=== PATIENT | female | born 1960 | race Caucasian/White ===

== ENCOUNTER 2017-10-14 19:11 | Emergency (ER) | payer OTHER ==
--- NOTE | 2017-10-14 20:36 | ER Document Report ---
ED Medical Screen (RME) - General Chief Complaint: Leg Pain Stated Complaint: RIGHT LEG PAIN/SWELLING Time Seen by Provider: 10/14/17 20:35 Notes: Patient has a spontaneous nontraumatic onset of right leg pain swelling and bruising. No previous history of DVTs. TRAVEL OUTSIDE OF THE [place] IN LAST 30 DAYS: No - Related Data Allergies/Adverse Reactions: No Known Allergies Allergy (Unverified 10/14/17 20:22) Past Medical History - Social History Chew tobacco use (# tins/day): No Frequency of alcohol use: Occasional Drug Abuse: Marijuana Renal/ Medical History: Denies: Hx Peritoneal Dialysis Musculoskeltal Medical History: Reports Hx Arthritis Physical Exam - Vital signs Vitals: Temp Pulse Resp BP Pulse Ox 98.1 F 78 20 149/94 H 99 10/14/17 19:28 10/14/17 19:28 10/14/17 19:28 10/14/17 19:28 10/14/17 19:28 Course - Vital Signs Vital signs: Temp Pulse Resp BP Pulse Ox 98.1 F 78 20 149/94 H 99 10/14/17 19:28 10/14/17 19:28 10/14/17 19:28 10/14/17 19:28 10/14/17 19:28
[2017-10-14 20:55] LABS: ABSOLUTE BASOPHILS # (AUTO) 0.1 10^3/uL (0.0-0.2); ABSOLUTE EOSINOPHILS # (AUTO) 0.3 10^3/uL (0.0-0.6); ABSOLUTE LYMPHOCYTES (AUTO) 2.1 10^3/uL (0.5-4.7); ABSOLUTE MONOCYTES (AUTO) 0.8 10^3/uL (0.1-1.4); ABSOLUTE NEUT (AUTO) 3.9 10^3/uL (1.7-8.2); BASOPHILS % (AUTO) 0.9 % (0-2); EOSINOPHILS % (AUTO) 4.6 % (0-6); HEMATOCRIT 36.9 % (36.0-47.0); HEMOGLOBIN 12.3 g/dL (12.0-15.5); MEAN CORPUSCULAR HEMOGLOBIN 30.1 pg (27.0-33.4); MEAN CORPUSCULAR HGB CONC 33.4 g/dL (32.0-36.0); MEAN CORPUSCULAR VOLUME 90 fl (80-97); PLATELET COUNT 327 10^3/uL (150-450); RED CELL DISTRIBUTION WIDTH 14.9 % (11.5-14.0); SEGMENTED NEUTROPHILS % (AUTO) 54.5 % (42-78); TOTAL CELLS COUNTED % (AUTO) 100 %; WHITE BLOOD COUNT 7.2 10^3/uL (4.0-10.5)
[2017-10-14 21:08] LABS: ANION GAP 9 (5-19); BLOOD UREA NITROGEN 17 mg/dL (7-20); CALCIUM 10.3 mg/dL (8.4-10.2); CARBON DIOXIDE 28 mmol/L (22-30); CHLORIDE 105 mmol/L (98-107); GLUCOSE 83 mg/dL (75-110); POTASSIUM 4.1 mmol/L (3.6-5.0); SODIUM 142.2 mmol/L (137-145)
--- NOTE | 2017-10-14 22:23 | ER Document Report ---
ED General - General Chief Complaint: Leg Pain Stated Complaint: RIGHT LEG PAIN/SWELLING Time Seen by Provider: 10/14/17 20:35 TRAVEL OUTSIDE OF THE [place] IN LAST 30 DAYS: No - HPI Notes: Patient is a 56-year-old female with no significant past medical history who presents to the ED complaining of right lower leg swelling, bruising, and pain 1-1/2 weeks without known injury or precipitating event. Patient states that she believes the swelling did improve over the weekend because she was not using as much, but over the last couple days the swelling has increased in the pain has increased as well. Patient states that most of her pain is to the posterior calf and posterior knee. Patient states that ambulating makes the pain worse. 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 She denies any prolonged immobilization, distance travel, smoking, hormone replacement, previous DVT/PE, recent surgery/trauma. Denies any drug allergies. No other concerns or complaints at this time. Patient states that she is eating and drinking without difficulties. She is urinating normally and having normal bowel movements. Denies any headache, fever, URI, sore throat, chest pain, palpitations, syncope, cough, shortness of breath, wheeze, dyspnea, abdominal pain, nausea/vomiting/diarrhea, urinary retention, dysuria, hematuria , back pain, loss of control of bowel or bladder, numbness/tingling, saddle anesthesia, muscle paralysis/weakness, or rash. - Related Data Allergies/Adverse Reactions: No Known Allergies Allergy (Unverified 10/14/17 20:22) Past Medical History - Social History Smoking Status: Former Smoker Chew tobacco use (# tins/day): No Frequency of alcohol use: Occasional Drug Abuse: Marijuana Family History: Reviewed & Not Pertinent Patient has suicidal ideation: No Patient has homicidal ideation: No Renal/ Medical History: Denies: Hx Peritoneal Dialysis Musculoskeltal Medical History: Reports Hx Arthritis Review of Systems - Review of Systems -: Yes All other systems reviewed and negative Physical Exam - Vital signs Vitals: Temp Pulse Resp BP Pulse Ox 98.1 F 78 20 149/94 H 99 10/14/17 19:28 10/14/17 19:28 10/14/17 19:28 10/14/17 19:28 10/14/17 19:28 - Notes Notes: PHYSICAL EXAMINATION: GENERAL: Well-appearing, well-nourished and in no acute distress. LUNGS: Breath sounds clear to auscultation bilaterally and equal. No wheezes rales or rhonchi. HEART: Regular rate and rhythm without murmurs, rubs, gallops. ABDOMEN: Soft, nontender, nondistended abdomen. No guarding, no rebound. No masses appreciated. Normal bowel sounds present. No CVA tenderness bilaterally. No obvious inguinal adenopathy. Musculoskeletal: Rt LE: FROM to passive/active. Strength 5+/5. N/v intact distal. + leander right side. + unilateral swelling and ecchymosis to the rt LE. Extremities: 1+ pitting edema to the rt LE. No edema LLE. Peripheral pulses 2 +. Capillary refill less than 3 seconds. NEUROLOGICAL: Cranial nerves grossly intact. Normal speech, normal gait. Normal sensory, motor exams PSYCH: Normal mood, normal affect. SKIN: Warm, Dry, normal turgor, no rashes or lesions noted. Course - Re-evaluation Re-evalutation: 10/14/17 23:[address] Monteiro. Patient is an afebrile, well-hydrated, 56-year-old female who presents to the ED with unilateral leg swelling and pain, suspicion for DVT. Vitals are acceptable. PE is otherwise unremarkable for any neurovascular compromise, obvious tendon/ligament rupture, obvious fracture/dislocation, septic joint. Unfortunately, we do not have any ultrasound here this evening and we missed the cutoff for notification to be able to have them come in. The soonest that she can have an ultrasound performed is tomorrow. In lieu of this, Lovenox 70 mg given today due to clinical suspicion with risk and benefit fully understood that includes bleeding and infection risk. Reviewed plan with patient and she is in agreement to return in the morning for further evaluation and management as well as ultrasound. She has been instructed to return to the emergency department. Patient to return to the emergency department with any other worsening/concerning symptoms otherwise as reviewed discharge. - Vital Signs Vital signs: Temp Pulse Resp BP Pulse Ox 97.4 F 73 16 139/89 H 99 10/14/17 22:55 10/14/17 22:55 10/14/17 22:55 10/14/17 22:55 10/14/17 22:55 - Laboratory Result Diagrams: 10/14/17 20:45 10/14/17 20:45 Laboratory results interpreted by me: 10/14/17 10/14/17 20:45 20:45 RDW 14.9 H Calcium 10.3 H Discharge - Discharge Clinical Impression: Swelling of right lower extremity Condition: Stable Disposition: HOME, SELF-CARE Instructions: DVT Workup Pending ([facility]) Additional Instructions: Rest, Elevation Tylenol as needed Light stretches daily Strength exercises as able Moist heat may help Return to the emergency department tomorrow morning for further evaluation and ultrasound of the right leg Return to the ED with any worsening symptoms and/or development of fever, headache, chest pain, palpitations, syncope, shortness of breath, trouble breathing, abdominal pain, n/v/d, muscle weakness/paralysis, numbness/tingling, swelling, redness, bleeding, or other worsening symptoms that are concerning to you. Forms: Elevated Blood Pressure
[2017-10-14 22:58] VITALS: BP 139/89
[2017-10-14] MEDS ORDERED: ENOXAPARIN SODIUM INJ 80 MG/0.8 ML DISP.SYRIN SUBCUT SCH (23:30)
[2017-10-14] MEDS ORDERED: ENOXAPARIN SODIUM INJ 80 MG/0.8 ML DISP.SYRIN SUBCUT ONE (23:30)
[2017-10-15] MEDS ORDERED: ENOXAPARIN SODIUM INJ 80 MG/0.8 ML DISP.SYRIN SUBCUT SCH (10:00)
== END 2017-10-14 23:50 | disposition home or self-care (01) ==
LOC: ER 19:11
DX: S80.11XA Contusion of right lower leg, initial encounter (principal); M79.89 Other specified soft tissue disorders; X58.XXXA Exposure to other specified factors, initial encounter; Z87.891 Personal history of nicotine dependence
CPT/HCPCS: 99283; 96372; 36415; 85025; 80048; J1650

== ENCOUNTER 2017-10-15 09:09 | Emergency (ER) | payer OTHER ==
--- NOTE | 2017-10-15 09:43 | ER Document Report ---
HPI - HPI Patient complains to provider of: RLE pain Onset: Last week Onset/Duration: Persistent Quality of pain: Achy Pain Level: 2 Context: Patient presents complaining of right lower extremity pain with swelling and unexplained bruising. Patient states she was here last night and they were attempting to get a venous duplex study although the Doppler orthodontic laboratory technician had left for the day. Patient is here for a Doppler test. Patient denies any previous history of PE or DVT in the past. Patient denies any known trauma to her leg. Patient denies any abnormal bleeding or bruising. Associated Symptoms: Other - Right lower extremity pain. denies: Chest pain, Productive cough Exacerbated by: Movement, Walking Relieved by: Denies Similar symptoms previously: No Recently seen / treated by doctor: Yes - ROS ROS below otherwise negative: Yes Systems Reviewed and Negative: Yes All other systems reviewed and negative - CONSTITUTIONAL Constitutional: DENIES: Fever - CARDIOVASCULAR Cardiovascular: DENIES: Chest pain - RESPIRATORY Respiratory: DENIES: Trouble Breathing, Coughing - MUSCULOSKELETAL Musculoskeletal: REPORTS: Extremity pain, Swelling - DERM Skin Color: Ecchymosis Past Medical History - General Information source: Patient - Social History Smoking Status: Former Smoker Frequency of alcohol use: Occasional Drug Abuse: Marijuana Occupation: construction Family History: Reviewed & Not Pertinent - Past Medical History Cardiac Medical History: Reports: Hx Hypertension Renal/ Medical History: Denies: Hx Peritoneal Dialysis Musculoskeltal Medical History: Reports Hx Arthritis Past Surgical History: Reports: Hx Hysterectomy Vertical Provider Document - CONSTITUTIONAL Agree With Documented VS: Yes Exam Limitations: No Limitations General Appearance: WD/WN, No Apparent Distress - INFECTION CONTROL TRAVEL OUTSIDE OF THE [place] IN LAST 30 DAYS: No - HEENT HEENT: Atraumatic, Normocephalic - NECK Neck: Normal Inspection - RESPIRATORY Respiratory: Breath Sounds Normal, No Respiratory Distress - CARDIOVASCULAR Cardiovascular: Regular Rate, Regular Rhythm Pulses: Normal: Dorsalis pedis - BACK Back: Normal Inspection - MUSCULOSKELETAL/EXTREMETIES Musculoskeletal/Extremeties: MAEW, Tender - Right lower extremity 2+ swelling with ecchymosis to middle third of anterior aspect of right lower leg and ecchymosis to posterior distal two thirds of leg - NEURO Level of Consciousness: Awake, Alert, Appropriate Motor/Sensory: No Motor Deficit - DERM Integumentary: Warm, Dry Course - Re-evaluation Re-evalutation: 10/15/17 12:26 Patient with nonvascular popliteal mass, no DVT per preliminary report. Consult with Dr. Mcleod regarding patient presentation, advises outpatient orthopedic follow-up. - Laboratory Laboratory results interpreted by me: 10/15/17 12:27 Labs- Entire Visit 10/15/17 09:55 PT 12.4 INR 0.88 APTT 37.7 H - Diagnostic Test Radiology reviewed: Reports reviewed Discharge - Discharge Clinical Impression: Swelling of right lower extremity, right popliteal mass Condition: Stable Disposition: HOME, SELF-CARE Instructions: Growth or Mass, Pending Workup ([facility]) Additional Instructions: Return immediately for any new or worsening symptoms Followup with your primary care provider, call tomorrow to make a followup appointment Follow-up with orthopedic doctor for further evaluation Prescriptions: Naproxen [Naprosyn 250 Nmg Tablet] 1 tab PO BID #14 tablet Forms: Return to Work Referrals: [facility] [Provider Group] - Follow up as needed [facility] [Provider Group] - Follow up as needed [facility] [Provider Group] - Follow up in 3-5 days
[2017-10-15 10:10] LABS: INTERNATIONAL RATION (INR) 0.88; PROTHROMBIN TIME 12.4 SEC (11.4-15.4)
[2017-10-15 10:11] LABS: PARTIAL THROMBOPLASTIN TIME 37.7 SEC (23.5-35.8)
[2017-10-15 12:49] VITALS: BP 139/96
--- NOTE | 2017-10-15 15:53 | XCELERA REPORT ---
[address] [address] Lower Extremity Venous Evaluation Name: ALESSANDRA HERNANDEZ Age: 56 yrs Gender: Female : 1960 Patient Status: Emergency Patient Location: ER Study Date: 10/15/2017 11:56 AM Procedure: Color flow and duplex imaging of the veins of the right lower extremity as well as the left Common Femoral vein. Reason For Study: RLE pain, bruising Ordering Physician: KELSEY NICOLE Performed By: Caryn Augustin Right Sided Venous Evaluation An avascular mass, 4 x 3 2 cms noted in the Popliteal fossa. Normal vessel filling wall to wall, compression and augmentation as well as Colour flow down to the infrageniculate veins. Interpretation Summary : KELSEY NICOLE > Marko Harley
== END 2017-10-15 12:48 | disposition home or self-care (01) ==
LOC: ER 09:09
DX: R22.41 Localized swelling, mass and lump, right lower limb (principal); M79.604 Pain in right leg; I10 Essential (primary) hypertension; Z90.710 Acquired absence of both cervix and uterus; Z87.891 Personal history of nicotine dependence
CPT/HCPCS: 36415; 85610; 85730; 93971; 99284